=== PATIENT | male | born 1985 | race Caucasian/White ===

== ENCOUNTER 2019-10-11 15:08 | Emergency (ER) | payer SELFPAY ==
[~2019-10-11] VITALS: Ht 182.9 cm; Wt 68.0 kg
[2019-10-11 15:15] VITALS: Ht 182.9 cm; Wt 68.0 kg
[2019-10-11 15:25] VITALS: BP 156/80
== END 2019-10-11 15:25 | disposition home or self-care (01) ==
LOC: ED 15:08
DX: B02.9 Zoster without complications (principal)